=== PATIENT | female | born 1960 | race Caucasian/White ===

== ENCOUNTER 2019-05-22 23:50 | Emergency (ER) | payer OTHER ==
[~2019-05-22] VITALS: Ht 165.1 cm; Wt 99.8 kg
[~2019-05-22 23:50] MED LIST: ACETAMINOPHEN-1 EAC1 PO; CIPROFLOXACIN500 M1 PO; CLONAZEPAM 0.50.5 M1 PO; CRANBERRY 6,001 EACH PO; FISH OIL 1,001000 M2 PO; LEXAPRO20 MG; ONE DAILY FOR1 EAC1 PO; SUPER B COMPLE150 MG PO; VITAMIN D35000 UNI1 PO; VITAMINC500 PO; WELLBUTRIN XL150 M2; XANAX 0.5 MG0.5 MG PO; ZOFRAN ODT4 MG SUBLING
[2019-05-23] MEDS ORDERED: ESTRADIOL 1 MG T1 M1 PO (00:14)
[2019-05-23] MEDS ORDERED: PERCOCET 5-3251 EACH PO (00:27)
[2019-05-23 00:47] VITALS: BP 135/67
== END 2019-05-23 00:48 | disposition home or self-care (01) ==
LOC: M.ERS 23:50
DX: S86.911A Strain of unspecified muscle(s) and tendon(s) at lower leg level, right leg, initial encounter (principal); F32.9 Major depressive disorder, single episode, unspecified; Z90.49 Acquired absence of other specified parts of digestive tract; Z85.3 Personal history of malignant neoplasm of breast; Z88.0 Allergy status to penicillin; X50.0XXA Overexertion from strenuous movement or load, initial encounter; Y92.89 Other specified places as the place of occurrence of the external cause; Y93.02 Activity, running; Y99.8 Other external cause status

== ENCOUNTER 2021-03-30 17:43 | Emergency (ER) | payer OTHER ==
[~2021-03-30] VITALS: Ht 165.1 cm; Wt 90.7 kg
[~2021-03-30 17:43] MED LIST changes: +ESTRADIOL 1 MG T1 M1 PO; +PERCOCET 5-3251 EACH PO
[2021-03-30 20:01] LABS: ABSOLUTE EOSINOPHILS 0.1 thou/uL (0.0-0.7); ABSOLUTE LYMPHOCYTES 1.3 thou/uL (0.8-5.3); ABSOLUTE MONOCYTES 0.4 thou/uL (0.0-1.2); ABSOLUTE NEUTROPHILS 4.8 thou/uL (1.6-8.1); BASOPHILS 0.7 %; EOSINOPHILS 0.9 %; HEMOGLOBIN 12.3 gm/dL (12.0-15.0); MCHC 33.1 g/dL (28.0-37.0); MCV 84.4 fL (80.0-100.0); MONOCYTES 5.6 %; MPV 7.5 fl. (7.2-11.1); NUCLEATED RBCS 0 /100WBC; PLATELET COUNT* 234 thou/uL (150-400); POLYS 72.8 %; RBC 4.38 mil/uL (4.20-5.00); RDW-CV 14.6 % (10.5-14.5); WBC 6.6 thou/uL (4.0-11.0)
[2021-03-30 20:10] LABS: CALCIUM 8.6 mg/dL (8.5-10.1); POTASSIUM 3.5 mmol/L (3.5-5.1)
[2021-03-30 20:20] LABS: ALBUMIN 4.1 g/dL (3.4-5.0); MAGNESIUM 1.7 mg/dL (1.8-2.4); TOTAL BILIRUBIN 0.4 mg/dL (<0.1-1.0)
[2021-03-30 21:32] LABS: URINE BILIRUBIN NEGATIVE (Negative); URINE BLOOD NEGATIVE (Negative); URINE CLARITY CLEAR; URINE COLOR YELLOW; URINE GLUCOSE-RANDOM NEGATIVE (Negative); URINE KETONES NEGATIVE (Negative); URINE LEUKOCYTES-REFLEX NEGATIVE (Negative); URINE NITRITE-REFLEX NEGATIVE (Negative); URINE PROTEIN NEGATIVE (Negative); URINE SPECIFIC GRAVITY <= 1.005 (1.005-1.030); URINE UROBILINOGEN 0.2 E.U./dl (0.2-1.0)
[2021-03-30] MEDS ORDERED: NITROSTAT0.4 M1 SUBLING (22:47)
[2021-03-30] MEDS ORDERED: LOPRESSOR50 MG PO (22:47)
[2021-03-30 23:04] VITALS: BP 153/81
--- NOTE | 2021-03-31 09:36 | EKG ---
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 : 1960 Requested By: Damien Scott Order Number: [id number] Sonia MD: Forrest Roblero Measurements Intervals [place] Rate: 134 P: 45 [place]: 147 QRS: 68 QRSD: 85 T: 24 QT: 305 QTc: 456 Interpretive Statements Sinus tachycardia Baseline wander in lead(s) II,III,aVR,aVL,aVF,V1,V2,V3,V4,V5,V6 Compared to ECG 01/28/2009 01:32:37 Sinus rhythm no longer present Electronically Signed On 03-31-2021 9:36:24 CDT by Forrest Roblero [email or web address] <ELECTRONICALLY SIGNED> By: Forrest Roblero MD, FAC 03/31/21 0936 1750 1750 Forrest Roblero MD, FAC /EPI
--- NOTE | 2021-03-31 09:42 | EKG ---
[place] [address] ELECTROCARDIOGRAM REPORT Name: KEVAN PHILLIP Room: [facility]#: [id number] Admission: 03/30/21 Attend Phys: Discharge: 03/30/21 Date of : 58 Date of Service: 03/30/212209 Report #: [id number] THIS REPORT FOR: //name// [facility] ED Test Date: 2021-03-30 Test Time: 22:10:43 Pat Name: KEVAN PHILLIP Department: Room: Gender: Verification Clerk: [place] [id number] : 1960 Requested By: Calli Avila Order Number: [id number] MD: Forrest Roblero Measurements Intervals [place] Rate: 101 P: 47 [place]: 153 QRS: 38 QRSD: 78 T: 36 QT: 351 QTc: 455 Interpretive Statements Sinus tachycardia Probable left atrial enlargement Compared to ECG 03/30/2021 17:50:24 rate has slowed Electronically Signed On 03-31-2021 9:42:28 CDT by Forrest Roblero [email or web address] <ELECTRONICALLY SIGNED> By: Forrest Roblero MD, [facility] 03/31/21 0942 09 09 Forrest Roblero MD, [facility] /EPI
== END 2021-03-30 23:04 | disposition home or self-care (01) ==
LOC: M.ERS 17:43
PROVIDERS: Emergency Medicine
DX: R07.89 Other chest pain (principal); Z20.822 Contact with and (suspected) exposure to COVID-19; Z90.49 Acquired absence of other specified parts of digestive tract; Z85.3 Personal history of malignant neoplasm of breast; Z88.0 Allergy status to penicillin